=== PATIENT | male | born 1985 | race African-American/Black ===

== ENCOUNTER 2020-02-10 19:24 | Emergency (ER) | payer MEDICAID ==
[~2020-02-10] VITALS: Ht 177.8 cm; Wt 102.1 kg
[2020-02-10 19:29] VITALS: BP 134/73; Ht 177.8 cm; Wt 102.1 kg
== END 2020-02-10 20:18 | disposition home or self-care (01) ==
LOC: ED 19:24
DX: S13.4XXA Sprain of ligaments of cervical spine, initial encounter (principal); M25.511 Pain in right shoulder; M25.512 Pain in left shoulder; M54.5 Low back pain; G89.29 Other chronic pain; V49.59XA Passenger injured in collision with other motor vehicles in traffic accident, initial encounter; Y93.89 Activity, other specified; Y92.488 Other paved roadways as the place of occurrence of the external cause; Y99.8 Other external cause status

== ENCOUNTER 2020-02-10 23:15 | Emergency (ER) | payer OTHER ==
[~2020-02-10] VITALS: Ht 177.8 cm; Wt 102.1 kg
[2020-02-10 23:17] VITALS: BP 160/99; Ht 177.8 cm; Wt 102.1 kg
== END 2020-02-10 23:56 | disposition other institution (70) ==
LOC: ED 23:15
DX: Z02.89 Encounter for other administrative examinations (principal)